=== PATIENT | female | born 1955 | race Caucasian/White ===

== ENCOUNTER 2019-11-04 10:35 | Day surgery (SDC) | payer BC, SELFPAY ==
[2019-11-01 11:03] VITALS: BMI 41.3
[2019-11-04] MEDS: sodium chloride 0.9% 1,000 ML 30 ML (11:13)
--- NOTE | 2019-11-04 11:13 | ANES.PREANES ---
Pre-Anesthetic Assessment Pre-Anesthetic Assessment: Height/Weight: Height 1.75 m Weight 127.006 kg Preop Diagnosis: history of colon polyps Proposed Procedure: Operation Date: 11/04/19 12:00 Proposed Procedures p Colonoscopy(Not Applicable) - Kem Sow MD Familial anesthetic complications: none Was Beta Smiley taken within 24 hours: N/A Last intake: Intake Last Liquid Date 11/03/19 Last Liquid Time 00:00 Last Solid Date 11/02/19 Last Solid Time 18:00 Social: Social History: No alcohol and No tobacco Exam: Pre-Anes Outpt Exam: alert, oriented x 3, clear to auscultation bilaterally and regular rate & rhythm Airway: Submandibular: WNL Cervical ROM: WNL MP: 2 Dentition: Other Additional comments: ok History/ROS: Other Pulmonary: Pulmonary: Sleep apnea (CPAP) CV/HEM: CV/HEM: None reported : : None reported Hepatic: Hepatic: None reported GI: GI: None reported Metabolic: Metabolic: Morbid obesity and Thyroid Musc/skel: Musc/skel: None reported Neuropsych: Neuropsych: None reported Anesthetic Plan: ASA status: II Anesthesia: MAC Risk of > 500 ml blood loss (7ml/kg in children): No PFSH Anesthesia PFSH: Social History (Updated 11/01/19 @ 11:03 by Karen Warren RN) Smoking and tobacco status: never smoked Second hand smoke exposure: No Alcohol intake: never Substance/Drug Use: never Adopted: No Caregiver/support person: Yes Lives independently: Yes Household members: spouse Housing: House Marital status: Number of children: 2 Number of grandchildren: 2 Highest education level completed: High School Graduate service: No Current occupational status: employed 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
[2019-11-04 11:23] VITALS: BP 148/48; PULSE 68; RESP 16; TEMP 36.3; O2SAT 98
--- NOTE | 2019-11-04 12:02 | PM.HPUD ---
H&P update H&P Update: DATE OF SURGERY/PROCEDURE: 11/04/19 DATE H&P PERFORMED: 10/31/19 H&P UPDATE INFORMATION: H&P completed within last 30 days and No changes to prior documentation PREOP DIAGNOSIS: History of colon polyps PLANNED PROCEDURE: Operation Date: 11/04/19 12:00 Proposed Procedures p Colonoscopy(Not Applicable) - Kem Sow MD Full H&P Perinent History: Family History: Family History (Updated 10/31/19 @ 08:52 by Leila Rooney RN) Denies family history of Anesthesia complication Bleeding disorder Social History: Social History Smoking and tobacco status: never smoked Second hand smoke exposure: No Alcohol intake: never Substance/Drug Use: never Adopted: No Caregiver/support person: Yes Lives independently: Yes Household members: spouse Housing: House Marital status: Number of children: 2 Number of grandchildren: 2 Highest education level completed: High School Graduate service: No Current occupational status: employed 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 Current occupational exposures/hazards: No Pets and animals: Yes Pets & animals: cat(s) History of recent travel: No Leisure activites: exercise Sexually active: Yes Current gender identity: Female Rossi/Religious: [employer]ian Special rossi needs: No Agree to transfusion: No Financial difficulty paying for basics: Decline to Answer
[2019-11-04 12:23] VITALS: BP 108/61; PULSE 67; RESP 16; TEMP 36.6; O2SAT 98
--- NOTE | 2019-11-04 12:26 | ANE.PACU ---
 Inpatient post-anesthesia follow up: Airway intact: Yes Vital signs: Temperature 97.9 F Pulse Rate [Apical ] 67 Respiratory Rate 16 Blood Pressure [Le ft Arm] 108/61 Pulse Oximetry 98 Oxygen Delivery Me thod Nasal Cannula Oxygen Flow Rate 2 Fraction of Inspir ed Oxygen Hydration adequate: Yes Nausea and vomiting: No Pain level: 1 Mental status: Baseline
[2019-11-04 12:40] VITALS: BP 115/71; PULSE 62; RESP 16; O2SAT 100
== END 2019-11-04 12:50 | disposition home or self-care (01) ==
PROVIDERS: Family Provider Nurse Practitioner Family; PCP Nurse Practitioner Family; Visit Provider Surgery
PROC: 0DJD8ZZ Inspection of Lower Intestinal Tract, Via Natural or Artificial Opening Endoscopic (ICD-10-PCS; CPT 45378; principal; 2019-11-04 12:00)
DX: Z12.11 Encounter for screening for malignant neoplasm of colon (principal); Z86.010 Personal history of colon polyps; K57.30 Diverticulosis of large intestine without perforation or abscess without bleeding; G47.30 Sleep apnea, unspecified; E66.01 Morbid (severe) obesity due to excess calories; Z68.41 Body mass index [BMI] 40.0-44.9, adult
CPT/HCPCS: 12345; 45378; 96365; J2704; J7030

== ENCOUNTER 2019-12-09 07:31 | Outpatient (CLI) | payer BC, SELFPAY ==
--- NOTE | 2019-12-09 07:46 | MM_ITS ---
WS: [id number] SCREENING DIGITAL MAMMOGRAM WITH CAD HISTORY: SCREENING COMPARISON: 09/05/2018 and 12/03/2013 Bilateral CC and MLO views submitted. Computer aided detection analyzed. Breast composition: There are scattered areas of fibroglandular density. No suspicious masses, microc alcifications or architectural distortion. MM/[id number] IMPRESSION: BI-RADS: 1-Negative FOLLOW UP: 1 Year Follow-up
== END 2019-12-09 07:32 | disposition home or self-care (01) ==
LOC: RADSHAW 07:39
PROVIDERS: Family Provider Nurse Practitioner Family; PCP Nurse Practitioner Family; Visit Provider Nurse Practitioner Family
DX: Z12.31 Encounter for screening mammogram for malignant neoplasm of breast (principal)
CPT/HCPCS: 77067

== ENCOUNTER 2020-07-22 16:25 | Outpatient (CLI) | payer BC, SELFPAY ==
--- NOTE | 2020-07-22 16:57 | XR_ITS ---
WS: [id number] XR lumbar spine 2-3V* [id number] REASON FOR EXAM: low back pain FINDINGS: Mild decrease in bone density. Accentuated lordosis of the lumbar spine. Endplate compression deformities of L1-L3. Mild to moderate narrowing of the disc spaces L1-L4. Degen erated disc at L5-S1 with gas in the interspace. Degenerative facet joint changes L2-S1. Thin curvilinear calcification in the upper abdomen just medial to the upper pole of the right kidney on the frontal view. The abnormality is not identifiable on the lateral view. XR/XR lumbar spine 2-3V* [id number] IMPRESSION: Compression deformities as above, unknown chronicity, most likely chronic. Changes of degenerative spondylosis as above. The etiology of the calcification noted is uncertain without identifying it on the lateral view. Possibly this represents a gallstone, although its position i s somewhat medial.
[2020-07-22 18:18] LABS: Erythrocyte Sedimentation Rate 31 mm/hr (0-15)
[2020-07-27 15:22] LABS: Anti-Nuclear Antibody Screen NEGATIVE (NEGATIVE)
== END 2020-07-22 16:26 | disposition home or self-care (01) ==
LOC: LAB 16:27
PROVIDERS: Family Provider Nurse Practitioner Family; PCP Nurse Practitioner Family; Visit Provider Nurse Practitioner Family
DX: M25.50 Pain in unspecified joint (principal); M54.5 Low back pain
CPT/HCPCS: 72100; 85651; 86038; 86431